=== PATIENT | female | born 1955 | race Caucasian/White ===

== ENCOUNTER → 2018-03-05 | Outpatient (CLI) | payer BC | LOC: M.RAD 13:28 | DX: Z12.31 Encounter for screening mammogram for malignant neoplasm of breast (principal); J32.0 Chronic maxillary sinusitis; J02.9 Acute pharyngitis, unspecified; J06.9 Acute upper respiratory infection, unspecified; Z68.41 Body mass index [BMI] 40.0-44.9, adult ==

== ENCOUNTER → 2018-08-05 | Outpatient (CLI) | payer BC | LOC: M.RAD 10:21 | DX: M17.0 Bilateral primary osteoarthritis of knee (principal); M25.461 Effusion, right knee; M71.21 Synovial cyst of popliteal space [Baker], right knee ==

== ENCOUNTER → 2019-08-21 | Outpatient (CLI) | payer BC | LOC: M.RAD 09:51 | DX: M85.812 Other specified disorders of bone density and structure, left shoulder (principal); M19.012 Primary osteoarthritis, left shoulder; M79.602 Pain in left arm ==

== ENCOUNTER → 2019-08-25 | Outpatient (CLI) | payer BC | LOC: M.MRI 15:24 | DX: M75.102 Unspecified rotator cuff tear or rupture of left shoulder, not specified as traumatic (principal); M79.602 Pain in left arm ==